=== PATIENT | female | born 1955 | race Caucasian/White ===

== ENCOUNTER 2018-02-03 09:59 | Day surgery (SDC) ==
[2018-02-03] MEDS ORDERED: LIDOCAINE 1% 20 ML MDV ID STA (11:56)
[2018-02-03] MEDS ORDERED: DIPRIVAN 20 ML VIAL IVP ONE (12:20)
[2018-02-03] MEDS ORDERED: LIDOCAINE HCL 2% LUER-JET ONE (12:20)
[2018-02-03] MEDS ORDERED: VERSED ONE (12:20)
[2018-02-03 15:47] VITALS: BP 156/74; TEMP 97.9
--- NOTE | 2018-02-04 11:08 | OP ---
PROCEDURE: EGD (ESOPHAGOGASTRODUODENOSCOPY) WITH BIOPSY. ENDOSCOPIST: Isabella HERNÁNDEZ M.D. INDICATION: ANEMIA INSTRUMENT: GIFH-190. MEDICATION: PER ANESTHESIA. PROCEDURE: The patient was positioned for endoscopy. The oropharynx was sprayed with Cetacaine spray and the endoscope was advanced through the bite block into the esophagus and from there advanced to the duodenum. The duodenum was normal. The pylorus was patent. The antrum reveals mild inflammatory change consistent with gastritis. Appears to be nonsteroidal induced. Biopsies were obtained. Biopsy for Helicobacter is also obtained. Retroflex exam reveals a normal cardia. The Z-line was regular at 35cm. She tolerated the procedure without immediate complication. PLAN: 1. Review pathology [facility]
--- NOTE | 2018-02-04 11:13 | OP ---
PROCEDURE: COLONOSCOPY TO THE CECUM. ENDOSCOPIST: Isabella HERNÁNDEZ M.D. INDICATION: ANEMIA INSTRUMENT: PCFH-190. MEDICATION: PER ANESTHESIA. PROCEDURE: The patient was positioned for colonoscopy. The digital rectal exam was negative. The colonoscope was inserted through the anus and advanced to the cecum. [place] Bowel Prep Score equals 9. There was no evidence for inflammatory change, polyp or mass. Retroflex exam was otherwise normal. She tolerated the procedure without immediate complication. Withdraw time 9 minutes and 27 seconds. PLAN: 1. Repeat colonoscopy in 5 years 2. Suggest that she stop all non-steroidal MTDD
== END 2018-02-03 14:09 | disposition home or self-care (01) ==
LOC: SURG 09:59
PROVIDERS: ATTEND Internal Medicine Gastroenterology
DX: D64.9 Anemia, unspecified (principal); K29.60 Other gastritis without bleeding
CPT/HCPCS: 87339